=== PATIENT | female | born 1990 | race African-American/Black ===

== ENCOUNTER 2017-09-22 23:08 | Emergency (ER) | payer OTHER ==
[~2017-09-22 23:08] MED LIST: IBUP600 PO; PNVPAK PO
--- NOTE | 2017-09-23 00:09 | PD ---
HPI Chief Complaint ?LOF Date Seen: Sep 22, 2017 Time Seen: 23:48 Travel History International Travel<30 Days: No Contact w/Intl Traveler<30Days: No Known Affected Area: No History of Present Illness HPI 27y/o @ 38.4wks. She has PNC with Dr. Rios. She was seen in clinic today and reports that she had her membranes stripped. This evening, she felt "wet" and thought that her water broke. Reports occasional ctx q10m. Not VB. +FM. 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 Weeks Gestation: 38 Para: 2 : 3 History Past Medical History Narrative Medical HSV+ Obstetric History Obstetric History x2 Past Surgical History Surgical History: No Previous Surgery Family History Family History: Negative Social History Alcohol Use: No Tobacco Use: No Substance Abuse: No Allergies-Medications (Allergen,Severity, Reaction): Coded Allergies: No Known Allergies (Unverified , 12/17/15) Home Meds Active Scripts Ibuprofen (Motrin 600 Mg Tab) 600 Mg Tab, 600 MG PO Q6H Y for CRAMPING, #30 TAB Prov:Lady Cardozo MD 12/18/15 Reported Medications W/O Vit A W/ Fe Carbo (Pnv Ob+Dha) Azael, 1 CAP PO, AZAEL 12/17/15 Review of Systems Except as stated in HPI: all other systems reviewed are Neg Physical Exam Narrative General: well developed, well nourished, no acute distress HEENT: normocephalic atraumatic, extraocular movements intact, neck supple Abdomen: soft, gravid, nontender, nondistended Uterus: fundus term Extremities: full range of motion Skin: normal coloration, no rashes, no suspicious skin lesions noted Neurologic: cranial nerves 2-12 grossly intact, normal muscle tone, normal gait Psychiatric: normal mood and affect, appropriate FHTs: 145, no accels present, late appearing decels with first 2 ctx, moderate variability, non-reactive Eva: ctx q9m, irritable in between Cvx: 50/-2 Data Data Vital Signs Reviewed: Yes Orders Orders Vital Signs (Adult) .ON ADMISSION (09/22/17 23:46) ^ Labor Status (09/22/17 23:46) ^ Non Stress Test (09/22/17 23:46) Pamg-1 Test .ONCE (09/22/17 23:46) MDM Plan 27y/o @ 38.4wks with ?LOF. -- amnisure negative -- cvx /-2 with occasional ctx -- FHTs non reactive; BPP ordered Diagnosis Diagnosis: Primary Impression: 38 weeks gestation of Additional Impressions: No leakage of amniotic fluid into vagina HSV (herpes simplex virus) anogenital infection Non-reactive NST (non-stress test) Satinder Alan MD Sep 23, 2017 00:09
== END 2017-09-23 01:12 | disposition home or self-care (01) ==
LOC: HOBED 23:08
DX: O26.893 Other specified pregnancy related conditions, third trimester (principal); O98.313 Other infections with a predominantly sexual mode of transmission complicating pregnancy, third trimester; A60.00 Herpesviral infection of urogenital system, unspecified; Z3A.38 38 weeks gestation of pregnancy
CPT/HCPCS: 76819; 99283

== ENCOUNTER 2017-09-25 01:22 | Inpatient (IN) | payer OTHER ==
[2017-09-25] VITALS (8 sets, daily range): BP systolic 105–144; BP diastolic 51–81; PULSE 87–118; RESP 18–20; TEMP 97.9–98.1
[~2017-09-25] VITALS: Ht 167.6 cm; Wt 93.0 kg
[2017-09-25] MEDS: LACTATED RINGER'S 1000 ML INJ 1,000 ML IV SCH (01:59)
[2017-09-25] MEDS ORDERED: LACTATED RINGER'S 1000 ML INJ 1,000 ML IV PRN (01:59)
--- NOTE | 2017-09-25 01:59 | PD ---
HPI Chief Complaint contractions Date Seen: Sep 25, 2017 Time Seen: 01:55 Travel History International Travel<30 Days: No Contact w/Intl Traveler<30Days: No Known Affected Area: No History of Present Illness HPI A 7-year-old who is at 39 weeks gestation comes in complaining contractions. Patient was seen last [place] cervix was noted to be 2 cm but tonight contractions became worse earlier in the evening and now is accompanied by some vaginal bleeding. Patient has had good movement and denies any significant antepartum complications. She does have a positive group B strep Weeks Gestation: 39 Para: 2 : 3 History Past Medical History Medical History: Denies Significant Hx Obstetric History Obstetric History Spontaneous vaginal delivery 2, Both approx 7.5 pounds Past Surgical History Surgical History: No Previous Surgery Family History Family History: Negative Social History Alcohol Use: No Tobacco Use: No Substance Abuse: No Allergies-Medications (Allergen,Severity, Reaction): Coded Allergies: No Known Allergies (Unverified , 12/17/15) Home Meds Active Scripts Ibuprofen (Motrin 600 Mg Tab) 600 Mg Tab, 600 MG PO Q6H Y for CRAMPING, #30 TAB Prov:Lady Cardozo MD 12/18/15 Reported Medications W/O Vit A W/ Fe Carbo (Pnv Ob+Dha) Francisco, 1 CAP PO, FRANCISCO 12/17/15 Review of Systems Except as stated in HPI: all other systems reviewed are Neg Physical Exam Narrative GENERAL: Well-nourished, well-developed patient. SKIN: Warm and dry. HEAD: Normocephalic and atraumatic. EYES: No scleral icterus. No injection or drainage. ENT: No nasal drainage noted. Mucous membranes pink. Airway patent. NECK: Supple, trachea midline. No JVD. CARDIOVASCULAR: Regular rate and rhythm without murmurs, gallops, or rubs. RESPIRATORY: Breath sounds equal bilaterally. No accessory muscle use. ABDOMEN/GI: Abdomen soft, non-tender, bowel sounds present, no rebound, no guarding Gravid to [-] weeks size 38 Fundal Height: [-] GENITOURINARY: External Genitalia: intact and normal in appearance BUS glands: [-] Normal Cervix: [-] Mid position Dilatation: [-] 8 Effacement: [-] 90 Station: [-] -2 Presentation: [-] Vertex Membranes: [intact or ruptured] intact with bulging membranes Uterine Contractions: [-] Every 5-6 FHT's: Category: [-] 1 Baseline: [-] 140 Reactive: [-] Moderate Variability: [-] Moderate Decels: [-] Absent EXTREMITIES: No cyanosis or edema. BACK: Nontender without obvious deformity. No CVA tenderness. NEUROLOGICAL: Awake and alert. Motor and sensory grossly within normal limits. Five out of 5 muscle strength in all muscle groups. Normal speech. Data Data Vital Signs Reviewed: Yes Group B Strep: Positive MDM Medical Record Reviewed: Yes Plan 27-year-old who is at 39 weeks gestation in active labor Group B strep positive necessitating penicillin prophylaxis Dr. Sosa is aware and is covering for his group Diagnosis Diagnosis: Primary Impression: 39 weeks gestation of Additional Impressions: Irregular uterine contractions Mother positive for group B Streptococcus colonization Clarissa Neal MD Sep 25, 2017 01:59
[2017-09-25] MEDS ORDERED: SODIUM CHLORID 0.9% 500 ML INJ 500 ML IV PRN (02:00)
[2017-09-25] MEDS ORDERED: CITRIC ACID-SODIUM CITRATE LIQ 30 ML UDC PO SCH (02:00)
[2017-09-25] MEDS ORDERED: LIDOCAINE HCL 1% 50 ML VIAL I-DERMAL PRN (02:00)
[2017-09-25] MEDS ORDERED: LIDOCAINE HCL 1% 50 ML VIAL INFIL PRN (02:00)
[2017-09-25] MEDS ORDERED: OXYTOCIN 30 UNITS-500ML PREMIX 500 ML IV ONE (02:00)
[2017-09-25] MEDS ORDERED: MINERAL OIL 10 ML VIAL TOPICAL PRN (02:00)
[2017-09-25] MEDS ORDERED: PENICILLIN G POTASSIUM INJ 5,000,000 UNITS in SODIUM CHLORIDE 0.9% INJ 100 ML IV ONE (02:00)
[2017-09-25] MEDS ORDERED: ONDANSETRON HCL 4 MG/2 ML VIAL IV PUSH PRN (02:00)
[2017-09-25] MEDS ORDERED: LIDOCAINE HCL 1% 20 ML VIAL ONE (02:09)
[2017-09-25] MEDS ORDERED: SODIUM CHLOR 0.9% 1000 ML INJ 1,000 ML IV PRN (02:19)
[2017-09-25 02:33] LABS: BASOPHIL % 0.2 % (0.0-2.0); EOSINOPHIL % 0.3 % (0.0-4.0); HEMATOCRIT 39.2 % (35.0-46.0); HEMOGLOBIN 13.7 GM/DL (11.6-15.3); LYMPH % 13.5 % (9.0-44.0); LYMPHOCYTE # 1.7 TH/MM3 (1.0-4.8); MEAN CELL VOLUME 91.3 FL (80.0-100.0); MEAN CORPUSCULAR HEMOGLOBIN 31.8 PG (27.0-34.0); MEAN CORPUSCULAR HGB CONC 34.9 % (32.0-36.0); MEAN PLATELET VOLUME 8.5 FL (7.0-11.0); MONO % 6.8 % (0.0-8.0); MONOCYTE # 0.9 TH/MM3 (0-0.9); NEUT % 79.2 % (16.0-70.0); PLATELET COUNT 225 TH/MM3 (150-450); RED BLOOD COUNT 4.29 MIL/MM3 (4.00-5.30); RED CELL DISTRIBUTION WIDTH 13.5 % (11.6-17.2); WHITE BLOOD COUNT 12.6 TH/MM3 (4.0-11.0)
[2017-09-25 02:48] LABS: BACTERIA, URINE FEW /hpf; BILIRUBIN, URINE NEG (NEG); BLOOD, URINE LARGE (NEG); GLUCOSE,URINE NEG (NEG); KETONE, URINE NEG (NEG); MUCUS URINE FEW /lpf (OCC); NITRITE,URINE NEG (NEG); SQUAMOUS EPITHELIAL CELL URINE 7 /hpf (0-5); URINE COLOR YELLOW (YELLW/STRAW); URINE LEUKOCYTE ESTERASE LARGE (NEG); WHITE BLOOD CELL CLUMPS RARE
[2017-09-25] MEDS ORDERED: PREN1TAB45 (02:48)
[2017-09-25] MEDS ORDERED: VALT500T PO (02:49)
--- NOTE | 2017-09-25 03:47 | PD.OB.DELI ---
Weeks gestation: 39 Gest age assessed date: Sep 25, 2017 Gest age assessed time: 00:30 Pt started active labor?: Yes Active labor start date: Sep 25, 2017 Active labor start time: 00:30 Medical induction of labor?: No Artificial rupture of membrane: No Anesthesia: None Episiotomy: None Vaginal Delivery: Normal Presentation: Occiput anterior Nuchal Cord: None Delayed cord clamping (45 sec): Yes : Female Delivery date: Sep 25, 2017 Delivery time: 03:08 One Minute : 8 Five Minute : 9 Weight: 7/13 Placenta: Spontaneous delivery Laceration: No lacerations Estimated blood loss: 250cc Andrea Sosa MD Sep 25, 2017 03:47
[2017-09-25] MEDS ORDERED: ALUMINUM/MAGNESIUM/SIMETH 30 ML CUP PO PRN (04:00)
[2017-09-25] MEDS ORDERED: OXYTOCIN 30 UNITS-500ML PREMIX 500 ML IV SCH (04:00)
[2017-09-25] MEDS ORDERED: OXYTOCIN 10 UNIT/ML AMP XX PRN (04:00)
[2017-09-25] MEDS ORDERED: IBUPROFEN 800 MG TAB PO PRN (04:00)
[2017-09-25] MEDS ORDERED: WITCH HAZEL 50%/GLYCERIN 12.5% 40 PAD JAR TOPICAL PRN (04:00)
[2017-09-25] MEDS ORDERED: ONDANSETRON ODT 4 MG TAB PO PRN (04:00)
[2017-09-25] MEDS ORDERED: ZOLPIDEM TARTRATE 5 MG TAB PO PRN (04:00)
[2017-09-25] MEDS ORDERED: DOCUSATE SODIUM 50 MG/SENNA 8.6 MG TAB PO PRN (04:00)
[2017-09-25] MEDS ORDERED: BENZOCAINE 20% TOPICAL SPRAY 60 ML CAN TOPICAL PRN (04:00)
[2017-09-25] MEDS ORDERED: SODIUM CHLORIDE 0.9% FLUSH 10 ML FLUSH IV FLUSH PRN (04:00)
[2017-09-25] MEDS ORDERED: PENICILLIN G POTASSIUM INJ 2,500,000 UNITS in SODIUM CHLORIDE 0.9% INJ 100 ML IV SCH (06:00)
[2017-09-25] MEDS: ACETAMINOPHEN 325 MG TAB PO PRN (06:25)
[2017-09-25] MEDS ORDERED: KETOROLAC TROMETHAMINE 60 MG/2 ML (IM) VIAL IM ONE (11:15)
[2017-09-25] MEDS ORDERED: DIPHTH/TETANUS/ACEL PERTUSSIS (BOOSTER) 0.5 ML VIAL/PFS IM ONE (16:00)
[2017-09-25] MEDS ORDERED: MEASLES, MUMPS, RUBELLA VACCINE 0.5 ML VIAL SQ ONE (16:00)
[2017-09-25] MEDS: KETOROLAC TROMETHAMINE 60 MG/2 ML (IM) VIAL IM SCH (17:58)
[2017-09-26] MEDS: ACETAMINOPHEN 325 MG TAB PO PRN (02:39)
[2017-09-26] MEDS: KETOROLAC TROMETHAMINE 60 MG/2 ML (IM) VIAL IM SCH ×4 (05:58→17:45)
[2017-09-26] MEDS: SODIUM CHLORIDE 0.9% FLUSH 10 ML FLUSH IV FLUSH SCH ×2 (07:37→19:52)
[2017-09-26 07:48] VITALS: BP 115/69; PULSE 76; RESP 18; TEMP 98.4
--- NOTE | 2017-09-26 09:27 | HHI.OB ---
Subjective Post Day: 1 Remarks doing well Objective Vitals/I&O Vital Signs Date Time Temp Pulse Resp B/P (MAP) Pulse Ox O2 Delivery O2 Flow Rate FiO2 09/26/17 07:48 98.4 76 18 115/69 (84) 09/25/17 20:00 98.1 87 18 122/81 (95) Objective Remarks GENERAL: Well-nourished, well-developed patient. CARDIOVASCULAR: Regular rate and rhythm without murmurs, gallops, or rubs. RESPIRATORY: Breath sounds equal bilaterally. No accessory muscle use. ABDOMEN/GI: Abdomen soft, non-tender. Fundus: Firm, non-tender at umbilicus. GENITOURINARY: Light to moderate bleeding. EXTREMITIES: No cyanosis or edema, non-tender, without signs of DVT. Medications and IVs Current Medications Medications (Trade) Dose Ordered Sig/Nick Route Start Time Stop Time Status Last Admin Lactated Ringer's 1,000 ml @ 125 mls/hr Q8H IV 09/25/17 01:59 Lactated Ringer's 1,000 ml @ 3,000 mls/hr Q20M PRN IV 09/25/17 01:59 09/25/17 02:30 Sodium Chloride 500 ml @ 1,000 mls/hr ONCE PRN IV 09/25/17 02:00 Sodium Chloride 1,000 ml @ 100 mls/hr Q10H PRN IV 09/25/17 02:19 (Xylocaine 1% Inj (50 ml)) 0.1 ml UNSCH X1 PRN I-DERMAL 09/25/17 02:00 09/28/17 01:59 (Bicitra Liq) 30 ml NEUROLOGY TECH PO 09/25/17 02:00 09/29/17 01:59 (Zofran Inj) 4 mg Q6H PRN IV PUSH 09/25/17 02:00 (fentaNYL INJ) 50 mcg Q1H PRN IV PUSH 09/25/17 02:00 09/25/17 02:31 (fentaNYL INJ) 100 mcg Q1H PRN IV PUSH 09/25/17 02:00 (Xylocaine 1% Inj (50 ml)) 10 ml UNSCH X1 PRN INFIL 09/25/17 02:00 09/27/17 01:59 (Muri-Lube Oil) 10 ml UNSCH PRN TOPICAL 09/25/17 02:00 (NS Flush) 2 ml BID IV FLUSH 09/25/17 09:00 (NS Flush) 2 ml UNSCH PRN IV FLUSH 09/25/17 04:00 (Tylenol) 650 mg Q4H PRN PO 09/25/17 04:00 09/26/17 02:39 (Americaine 20% Top Spr) 1 spray Q4H PRN TOPICAL 09/25/17 04:00 (Tucks Pads) 1 applic QID PRN TOPICAL 09/25/17 04:00 (Meli-Colace) 2 tab Q12H PRN PO 09/25/17 04:00 (Ambien) 5 mg HS PRN PO 09/25/17 04:00 (Mag-Al Plus Susp Liq) 15 ml Q8H PRN PO 09/25/17 04:00 (Zofran Odt) 4 mg Q6H PRN PO 09/25/17 04:00 (Toradol Inj) 10 mg Q6HR IM 09/25/17 18:00 09/30/17 17:59 09/25/17 17:58 Assessment/Plan Problem List: (1) (spontaneous vaginal delivery) ICD Codes: O80 - Encounter for full-term uncomplicated delivery (2) Mother positive for group B Streptococcus colonization ICD Codes: P00.2 - [place] affected by maternal infectious and parasitic diseases Status: Acute Assessment and Plan PPD 1 continue routine supportive care GBS +, needs 48 hour obs of Discharge Planning ppd 2 Lady Cardozo MD Sep 26, 2017 09:27
[2017-09-26] MEDS ORDERED: IBUP-232 PO (09:28)
--- NOTE | 2017-09-26 09:29 | HHI.DCPOC ---
Discharge Care Plan Diagnosis: (1) (spontaneous vaginal delivery) Your Health Problems Are: Vaginal delivery Report Symptoms to Your Doctor -Temperature above 100.5 degrees -Redness, of incision or excessive or foul smelling drainage -Unusual pain or calf pain -Increased vaginal bleeding -Painful or difficulty urinating -Feelings of extreme sadness or anxiety after 2 weeks Goals to Promote Your Health * To prevent worsening of your condition and complications * To maintain your health at the optimal level Directions to Meet Your Goals Take your medications as prescribed Follow your dietary instruction Follow activity as directed Ensure plenty of rest for recovery Drink fluids for hydration Keep your appointments as scheduled Take your immunizations and boosters as scheduled If your symptoms worsen call your PCP, if no PCP go to Urgent Care Center or Emergency Room Smoking is Dangerous to Your Health. Avoid second hand smoke Call the 24-hour crisis hotline for domestic abuse at Lady Cardozo MD Sep 26, 2017 09:29
[2017-09-26] MEDS: LACTATED RINGER'S 1000 ML INJ 1,000 ML IV SCH (09:59)
[2017-09-27] MEDS: LACTATED RINGER'S 1000 ML INJ 1,000 ML IV SCH (01:59)
[2017-09-27] MEDS: KETOROLAC TROMETHAMINE 60 MG/2 ML (IM) VIAL IM SCH ×2 (05:29)
--- NOTE | 2017-09-27 07:58 | HHI.OB ---
Subjective Post Day: 2 Remarks s/p uncomplicated of healthy female Objective Objective Remarks GENERAL: Well-nourished, well-developed patient. . CARDIOVASCULAR: Regular rate and rhythm without murmurs, gallops, or rubs. RESPIRATORY: Breath sounds equal bilaterally. No accessory muscle use. ABDOMEN/GI: Abdomen soft, non-tender. Fundus: Firm, non-tender at umbilicus. GENITOURINARY: Light bleeding. EXTREMITIES: No cyanosis or edema, non-tender, without signs of DVT. Medications and IVs Current Medications Medications (Trade) Dose Ordered Sig/Nick Route Start Time Stop Time Status Last Admin Lactated Ringer's 1,000 ml @ 125 mls/hr Q8H IV 09/25/17 01:59 Lactated Ringer's 1,000 ml @ 3,000 mls/hr Q20M PRN IV 09/25/17 01:59 09/25/17 02:30 Sodium Chloride 500 ml @ 1,000 mls/hr ONCE PRN IV 09/25/17 02:00 Sodium Chloride 1,000 ml @ 100 mls/hr Q10H PRN IV 09/25/17 02:19 (Xylocaine 1% Inj (50 ml)) 0.1 ml UNSCH X1 PRN I-DERMAL 09/25/17 02:00 09/28/17 01:59 (Bicitra Liq) 30 ml LICENSING REGISTRATION EXAMINER PO 09/25/17 02:00 09/29/17 01:59 (Zofran Inj) 4 mg Q6H PRN IV PUSH 09/25/17 02:00 (fentaNYL INJ) 50 mcg Q1H PRN IV PUSH 09/25/17 02:00 09/25/17 02:31 (fentaNYL INJ) 100 mcg Q1H PRN IV PUSH 09/25/17 02:00 (Muri-Lube Oil) 10 ml UNSCH PRN TOPICAL 09/25/17 02:00 (NS Flush) 2 ml BID IV FLUSH 09/25/17 09:00 (NS Flush) 2 ml UNSCH PRN IV FLUSH 09/25/17 04:00 (Tylenol) 650 mg Q4H PRN PO 09/25/17 04:00 09/26/17 02:39 (Americaine 20% Top Spr) 1 spray Q4H PRN TOPICAL 09/25/17 04:00 (Tucks Pads) 1 applic QID PRN TOPICAL 09/25/17 04:00 (Meli-Colace) 2 tab Q12H PRN PO 09/25/17 04:00 (Ambien) 5 mg HS PRN PO 09/25/17 04:00 (Mag-Al Plus Susp Liq) 15 ml Q8H PRN PO 09/25/17 04:00 (Zofran Odt) 4 mg Q6H PRN PO 09/25/17 04:00 (Toradol Inj) 10 mg Q6HR IM 09/25/17 18:00 09/30/17 17:59 09/25/17 17:58 Assessment/Plan Problem List: (1) (spontaneous vaginal delivery) ICD Codes: O80 - Encounter for full-term uncomplicated delivery Status: Acute (2) Mother positive for group B Streptococcus colonization ICD Codes: P00.2 - affected by maternal infectious and parasitic diseases Status: Acute Assessment and Plan PPD 2 , continue supportive care d/c planning for today Discharge Planning today Madison Contreras MD Sep 27, 2017 07:58
[2017-09-27 08:00] VITALS: BP 124/72; PULSE 81; RESP 16; TEMP 98.3
== END 2017-09-27 11:41 | disposition home or self-care (01) | DRG 775 ==
LOC: HOBED 01:22 → H2EA 01:56 → H1EA 05:16
PROVIDERS: ADMIT Obstetrics & Gynecology; ATTEND Obstetrics & Gynecology
PROC: 10E0XZZ Delivery of Products of Conception, External Approach (ICD-10-PCS; principal; 2017-09-25)
DX: O99.824 Streptococcus B carrier state complicating childbirth (principal); Z37.0 Single live birth; Z3A.39 39 weeks gestation of pregnancy
CPT/HCPCS: 59025; 80307; 81001; 85025; 86900; 86901; 87086; G0481; J1885; J2540; J3010; J7120